=== PATIENT | male | born 1995 | race Caucasian/White ===

== ENCOUNTER 2020-03-25 21:22 | Observation (INO) ==
[2020-03-25 23:12] LABS: Appearance Urine Clear (Clear); Bacteria Urine Automated Negative (Negative); Bilirubin Urine Negative (Negative); Blood Urine Negative (Negative); Color Urine Yellow; Epithelial Cell Urine Auto 20-30 /lpf (0-5); Glucose Urine UA Trace (Negative); Ketones Urine Negative (Negative); Leukocyte Esterase Urine 1+ (Negative); Nitrite Urine Negative (Negative); Protein Urine Negative (Negative); RBC Urine Automated 0-4 /hpf (0-4); Specific Gravity Urine 1.012 (1.000-1.030); Urobilinogen Urine Negative (Negative); WBC Urine Automated >30 /hpf (0-5); pH Urine 6.5 (4.5-7.5)
[2020-03-25 23:14] LABS: Amphetamines+Metham, Urine Neg (Neg); Barbiturates, Urine Neg (Neg); Benzodiazepine, Urine Neg (Neg); Cocaine, Urine Neg (Neg); MDMA (Ecstacy), Urine Neg (Neg); Methadone, Urine Neg (Neg); Opiate, Urine Neg (Neg); Phencyclidine, Urine Neg (Neg)
[2020-03-25 23:47] LABS: Basophils # (auto) 0.03 K/uL (0-0.2); Basophils % (auto) 0.4 %; Eosinophils # (auto) 0.05 K/uL (0-0.5); Eosinophils % (auto) 0.7 %; Hematocrit (blood only) 42.7 % (42-52); Hemoglobin 15.3 g/dL (14.0-18.0); Immature Granulocytes # (auto) 0.02 K/uL (0.00-0.02); Immature Granulocytes % (auto) 0.3 %; Lymphocytes # (auto) 2.89 K/uL (1.2-3.4); Lymphocytes % (auto) 41.9 %; Mean Corpuscular Hemoglobin 28.8 pg (25-34); Mean Corpuscular Hgb Conc 35.8 g/dL (32-36); Mean Corpuscular Volume 80.3 fL (80-100); Mean Platelet Volume 8.8 fL (7.4-10.4); Monocytes # (auto) 0.37 K/uL (0.11-0.59); Monocytes % (auto) 5.4 %; Neutrophils # (auto) 3.54 K/uL (1.4-6.5); Neutrophils % (auto) 51.3 %; Platelet Count 276 K/uL (130-400); RDW Coefficient of Variation 12.5 % (11.5-14.5); RDW Standard Deviation 36.1 fL (36.4-46.3); Red Blood Count 5.32 M/uL (4.7-6.1)
[2020-03-26 00:10] LABS: Acetaminophen 142 ug/ml (10-30); Albumin Level 4.2 gm/dl (3.4-5.0); BUN Creatinine Ratio 11.2 (10-20); Calcium 9.2 mg/dl (8.5-10.1); Creatinine Clr Calc Pharmacy 101.6 ml/min; Est GFR (African American) 137.2; Est GFR (Non-African American) 118.4; Potassium 3.8 mmol/L (3.5-5.1); Salicylate < 1.7 mg/dl (2.8-20)
[2020-03-26] MEDS ORDERED: DEXTROSE 5% IV ONE ×2 (00:12)
[2020-03-26] MEDS ORDERED: ACETYLCYSTEINE IV ONE ×2 (00:12)
[2020-03-26 00:21] LABS: Albumin Globulin Ratio 1.3 (0.9-2); Bilirubin,Total 0.4 mg/dl (0.2-1); Globulin 3.3 gm/dl (2.5-4.0); Thyroid Stimulating Hormone 1.4 uIu/ml (0.300-4.500); Total Protein 7.5 gm/dl (6.4-8.2)
--- NOTE | 2020-03-26 00:34 | Emergency Department Note ---
History of Present Illness General Chief Complaint: Overdose (Accidental) Stated Complaint: TOOK TOO MANY ADVIL, EAR PAIN Time Seen by Provider: 03/25/20 21:41 History of Present Illness Provider Complaint: + accidental overdose Time: 19:30 HPI Narrative: 24-year-old college student presented to the emergency department with his father. Patient states at 7:30 PM he took 3 g of Tylenol, 6 500 mg tablet intentionally to "help him study". He states he usually takes Tylenol to help him study. He states he usually takes 4 500 mg tablets at a time. He states he started having ringing in his ears and then googled the symptoms which told him he could be detrimental to his health so he came to the emergency depar tment. Father has a picture of the pill bottle bottle that the patient ingested and it was acetaminophen 500 mg. Patient denies any drug use or alcohol abuse. He denies any suicidal or homicidal ideation. He denies trying to get high. Patient states he does this to help him study. Substance Ingested acetaminophen: Strength of Substance: 500 Number of Pills Ingested: 6 Total Dose: 3000 Time of Ingestion: 19:30 Intent: other ("To help him study") How Overdose Was Discovered: told parent and other (Patient states he googled that if he takes too much Tylenol and can be detrimental to his health.) Context: Accidental Overdose: other (Patient states he googled that if he takes too much Tylenol and can be detrimental to his health.) Home Medications Home Medications Medication Instructions Recorded Confirmed Type No Known Home Medications 03/26/20 03/26/20 History Allergies Allergy/AdvReac Type Severity Reaction Status Date / Time No Known Allergies Allergy Unverified 03/26/20 00:22 Past Med/Surg History Medical History (Updated 03/26/20 @ 00:34 by Chito Cuba) No pertinent family history No pertinent past medical history Surgical History (Updated 03/26/20 @ 00:27 by Chito Cuba) No pertinent past surgical history Social History Smoking Status: Never smoker Feels Safe at Home: Yes Review of Systems A total of 10 systems reviewed and were otherwise negative Physical Exam Vital Signs: Vital Signs - 24 hr 03/25/20 21:33 03/25/20 22:40 03/26/20 00:21 Temperature 36.9 C Temperature Source Oral Pulse Rate 82 Pulse Rate [Finger ] 74 74 Respiratory Rate 18 16 16 Respiratory Effort / Characteristics Non-Labored Sponta neous Respiratory Depth Normal Normal Blood Pressure 136/79 Blood Pressure [Ri ght Arm] 133/81 130/77 Blood Pressure Siobhan n 98 Blood Pressure Siobhan n [Right Arm] 98 94 Blood Pressure Pos ition Sitting Pulse Oximetry 95 97 100 Oxygen Delivery Me thod Room Air Room Air Room Air Sepsis Recent Feve r Within 48 Hours No Sepsis New/Unexpla ined Change in Men jalen Status N/A Sepsis Action Take n by Nursing No Action Required Physical Exam: Physical Exam GENERAL: He is oriented to person, place, and time. He appears well-developed and well-nourished. He does not appear distressed. HENT: Exam performed. - Head: Normocephalic and atraumatic. - Right Ear: External ear normal. No mastoid tenderness. - Left Ear: External ear normal. No mastoid tenderness. - Mouth/Throat: The oropharynx is clear and moist. No trismus in the jaw. No dental abscesses or uvula swelling. No oropharyngeal exudate or tonsillar abscesses. EYES: Conjunctivae and EOM are normal. Pupils are equal, round, and reactive to light. Right eye exhibits no discharge. Left eye exhibits no discharge. No scleral icterus. NECK: Normal range of motion. Neck supple. No JVD present. No spinous process tenderness present. No carotid bruit present. No rigidity. No tracheal deviation and normal range of motion present. No Brudzinski's sign and no Kernig's sign noted. CV: Normal rate, regular rhythm, normal heart sounds and intact distal pulses. There is no peripheral edema. Palpable radial pulses bue. PULM/CHEST: Effort normal and breath sounds normal. No respiratory distress. No stridor. He has no wheezes. He has no rales. - Chest Wall: He exhibits no tenderness. ABD: The abdomen is soft. Bowel sounds are normal. He has no distension. No mass is present. There is no tenderness. There is no rebound, no guarding, no Sage's sign and no tenderness at McBurney's point. Rovsig negative. MUSC/SKEL: Normal range of motion. There is no peripheral edema, tenderness or deformity. LYMPH: No cervical adenopathy. NEURO: He is alert and oriented to person, place, and time. He has normal strength. No cranial nerve deficit or sensory deficit. Coordination and gait normal. GCS eye subscore is 4. GCS verbal subscore is 5. GCS motor subscore is 6. Cerebellar tests wnl. SKIN: Skin is warm and dry. He is not diaphoretic. PSYCH: He has a normal mood and affect. Behavior is normal. Judgment and thought content normal. Course Course 2140: The patient was evaluated in room B6. A complete history and physical exam was performed. Cardiac monitoring: An order was placed for continuous cardiac monitoring. The monitor shows a rate of 70 with sinus rhythm 220: Spoke with [facility]. They asked that the patient took any salicylates and he adamantly denies taking it. Father states that there were no salicylate bottles by him. [facility] also asked that the patient took any Tylenol earlier in the day and the patient states he took 1 g, two 500 mg tablets at approximately 10 AM. Discussed with [facility] and we will wait to check the patient's Tylenol level and lab levels at 2330, 4 hours after ingestion. 0029: Vital signs stable. Labs show Tylenol level of 142. On repeat assessment the patient is in no acute distress. I again asked him if he was sure that the ingestion was at exactly 7:30 PM, he stated it was sometime between 7 and 8 PM he thinks around 7:30 PM. I discussed this with [facility] and given this new information and not exact time of ingestion, both the [facility]ison Control [facility] and I agreed that the patient should be started on neck therapy for Tylenol overdose. Doses were confirmed with [facility]. [facility] Patient continues to deny any suicidal or homicidal ideation. Medical Decision Making Laboratory Data Result diagrams: 03/25/20 23:25 03/25/20 23:25 Lab Results 03/25/20 03/25/20 03/25/20 Range/Units 22:38 22:38 23:25 WBC 6.90 (4.8-10.8) K/uL RBC 5.32 (4.7-6.1) M/uL Hgb 15.3 (14.0-18.0) g/dL Hct 42.7 (42-52) % MCV 80.3 (80-100) fL MCH 28.8 (25-34) pg MCHC 35.8 (32-36) g/dL RDW Std Deviation 36.1 L (36.4-46.3) fL RDW Coeff of [place] 12.5 (11.5-14.5) % Plt Count 276 (130-400) K/uL MPV 8.8 (7.4-10.4) fL Immature Gran % (Auto) 0.3 % Neut % (Auto) 51.3 % Lymph % (Auto) 41.9 % [place] % (Auto) 5.4 % Eos % (Auto) 0.7 % Baso % (Auto) 0.4 % Neut # (Auto) 3.54 (1.4-6.5) K/uL Lymph # (Auto) 2.89 (1.2-3.4) K/uL [place] # (Auto) 0.37 (0.11-0.59) K/uL Eos # (Auto) 0.05 (0-0.5) K/uL Baso # (Auto) 0.03 (0-0.2) K/uL Immature Gran # (Auto) 0.02 (0.00-0.02) K/uL Sodium (136-145) mmol/L Potassium (3.5-5.1) mmol/L Chloride (98-107) mmol/L Carbon Dioxide (21-32) mmol/L Anion Gap (3-11) BUN (7-18) mg/dl Creatinine (0.6-1.4) mg/dl Est Cr Clr Drug Dosing ml/min Est GFR ( Amer) Est GFR (Non-Af Amer) BUN/Creatinine Ratio (10-20) Glucose (70-99) mg/dl Calcium (8.5-10.1) mg/dl Total Bilirubin (0.2-1) mg/dl AST (15-37) U/L ALT (12-78) U/L Alkaline Phosphatase (45-117) U/L Total Protein (6.4-8.2) gm/dl Albumin (3.4-5.0) gm/dl Globulin (2.5-4.0) gm/dl Albumin/Globulin Ratio (0.9-2) TSH (0.300-4.500) uIu/ml Urine Color Yellow Urine Appearance Clear (Clear) Urine pH 6.5 (4.5-7.5) Ur Specific [place] 1.012 (1.000-1.030) Urine Protein Negative (Negative) Urine Glucose (UA) Trace H (Negative) Urine Ketones Negative (Negative) Urine Blood Negative (Negative) Urine Nitrite Negative (Negative) Urine Bilirubin Negative (Negative) Urine Urobilinogen Negative (Negative) Ur Leukocyte Esterase 1+ H (Negative) Urine WBC (Auto) >30 H (0-5) /hpf Urine RBC (Auto) 0-4 (0-4) /hpf U Hyaline Cast (Auto) 1-5 (0-5) /lpf U Epithel Cells (Auto) 20-30 H (0-5) /lpf Urine Bacteria (Auto) Negative (Negative) Salicylates (2.8-20) mg/dl Urine Opiates Screen Neg (Neg) Ur Methadone, Qual Neg (Neg) Acetaminophen (10-30) ug/ml Urine Barbiturates Neg (Neg) Ur Phencyclidine (PCP) Neg (Neg) U Amphetamin/Meth Scrn Neg (Neg) MDMA (Ecstasy) Screen Neg (Neg) U Benzodiazepines Scrn Neg (Neg) Ur Cocaine Metabolite Neg (Neg) U Marijuana (THC) Screen Neg (Neg) Ethyl Alcohol mg/dL (0-3) mg/dl 03/25/20 03/25/20 03/25/20 Range/Units 23:25 23:25 23:25 WBC (4.8-10.8) K/uL RBC (4.7-6.1) M/uL Hgb (14.0-18.0) g/dL Hct (42-52) % MCV (80-100) fL MCH (25-34) pg MCHC (32-36) g/dL RDW Std Deviation (36.4-46.3) fL RDW Coeff of [place] (11.5-14.5) % Plt Count (130-400) K/uL MPV (7.4-10.4) fL Immature Gran % (Auto) % Neut % (Auto) % Lymph % (Auto) % [place] % (Auto) % Eos % (Auto) % Baso % (Auto) % Neut # (Auto) (1.4-6.5) K/uL Lymph # (Auto) (1.2-3.4) K/uL [place] # (Auto) (0.11-0.59) K/uL Eos # (Auto) (0-0.5) K/uL Baso # (Auto) (0-0.2) K/uL Immature Gran # (Auto) (0.00-0.02) K/uL Sodium 141 (136-145) mmol/L Potassium 3.8 (3.5-5.1) mmol/L Chloride 105 (98-107) mmol/L Carbon Dioxide 28 (21-32) mmol/L Anion Gap 8.0 (3-11) BUN 10 (7-18) mg/dl Creatinine 0.91 (0.6-1.4) mg/dl Est Cr Clr Drug Dosing 101.6 ml/min Est GFR ( Amer) 137.2 Est GFR (Non-Af Amer) 118.4 BUN/Creatinine Ratio 11.2 (10-20) Glucose 96 (70-99) mg/dl Calcium 9.2 (8.5-10.1) mg/dl Total Bilirubin 0.4 (0.2-1) mg/dl AST 11 L (15-37) U/L ALT 17 (12-78) U/L Alkaline Phosphatase 50 (45-117) U/L Total Protein 7.5 (6.4-8.2) gm/dl Albumin 4.2 (3.4-5.0) gm/dl Globulin 3.3 (2.5-4.0) gm/dl Albumin/Globulin Ratio 1.3 (0.9-2) TSH 1.400 (0.300-4.500) uIu/ml Urine Color Urine Appearance (Clear) Urine pH (4.5-7.5) Ur Specific [place] (1.000-1.030) Urine Protein (Negative) Urine Glucose (UA) (Negative) Urine Ketones (Negative) Urine Blood (Negative) Urine Nitrite (Negative) Urine Bilirubin (Negative) Urine Urobilinogen (Negative) Ur Leukocyte Esterase (Negative) Urine WBC (Auto) (0-5) /hpf Urine RBC (Auto) (0-4) /hpf U Hyaline Cast (Auto) (0-5) /lpf U Epithel Cells (Auto) (0-5) /lpf Urine Bacteria (Auto) (Negative) Salicylates < 1.7 L (2.8-20) mg/dl Urine Opiates Screen (Neg) Ur Methadone, Qual (Neg) Acetaminophen 142 H (10-30) ug/ml Urine Barbiturates (Neg) Ur Phencyclidine (PCP) (Neg) U Amphetamin/Meth Scrn (Neg) MDMA (Ecstasy) Screen (Neg) U Benzodiazepines Scrn (Neg) Ur Cocaine Metabolite (Neg) U Marijuana (THC) Screen (Neg) Ethyl Alcohol mg/dL < 3.0 (0-3) mg/dl ECG Data Indication: toxicologic Rate (beats per minute): 71 Rhythm: sinus with SA Findings: + T-wave inversion (Lead III only); no ST depression, no ST elevation and no prolonged QT Additional Comments: MI QRS and QTc intervals are within normal limits. [facility] Narrative 2141: The patient was evaluated in room B6. A complete history and physical exam was performed. Cardiac monitoring: An order was placed for continuous cardiac monitoring. The monitor shows a rate of 70 with sinus rhythm 2209: Spoke with [facility]. They asked that the patient took any salicylates and he adamantly denies taking it. Father states that there were no salicylate bottles by him. [facility] also asked that the patient took any Tylenol earlier in the day and the patient states he took 1 g, two 500 mg tablets at approximately 10 AM. Discussed with [facility] Control [facility] and we will wait to check the patient's Tylenol level and lab levels at 2330, 4 hours after ingestion. 0029: Vital signs stable. Labs show Tylenol level of 142. On repeat assessment the patient is in no acute distress. I again asked him if he was sure that the ingestion was at exactly 7:30 PM, he stated it was sometime between 7 and 8 PM he thinks around 7:30 PM. I discussed this with [facility] and given this new information and not exact time of ingestion, both the Poison Control Center and I agreed that the patient should be started on neck therapy for Tylenol overdose. Doses were confirmed with [facility] Control [facility]. [facility]. Patient continues to deny any suicidal or homicidal ideation. Impression & Plan Overdose on Tylenol Critical Care Time Critical Care Time: Yes Total Critical Care Time: 43 I have personally spent greater than 43 minutes of critical care time in the direct management of this patient. This includes bedside care, interpretation of diagnostic studies, and testing, discussion with consultants, patient, and family members, and other required patient management activities. This 43 minutes is in excess of all separately billable procedures. Discharge Plan Visit Data Chief Complaint: Overdose (Accidental) Stated Complaint: TOOK TOO MANY ADVIL, EAR PAIN ED Provider: Chito Cuba Discharge Problem: Overdose on Tylenol Patient Disposition: Admitted As Inpatient Forms Stand Alone Forms: [facility] Prescriptions Prescriptions: No Action No Known Home Medications RF: 0 Referrals Referrals: Awais Aceves PA-C [Primary Care Provider] - Discharge Problem: Overdose on Tylenol Qualifiers: Encounter type: initial encounter Injury intent: undetermined intent Qualified Code(s): T39.1X4A - Poisoning by 4-Aminophenol derivatives, undetermined, initial encounter
[2020-03-26] MEDS ORDERED: ONDANSETRON INJ 2 MG/ML 2 ML VIAL IV PRN (01:46)
--- NOTE | 2020-03-26 02:09 | History & Physical Report ---
Date of Service March 26, 2020 Assessment & Plan (1) Unintentional Tylenol overdose: Acetaminophen level was 142, with normal range 10-30. N-acetylcysteine antidote has begun in the ED, and will be continued per protocol. Repeat laboratories, CBC with differential, chemistry profile and magnesium level in a.m. on 03/27. Repeat labs plus acetaminophen level in 4 hours. Present on Admission?: Yes Admission and Anticipated Discharge Date Admission Date: March 26, 2020 History of Present Illness Chief Complaint: The patient presents to the emergency department with his father, due to concerns regarding routine usage of Tylenol that he has been taking to help him relax while studying Primary Care Provider: Awais Aceves PA-C The patient is a 24-year-old male college student, with no significant past medical history, who has been taking typically 4 Tylenol at the time because it helps him relax and go to sleep for the study. This evening he took 6 tablets, and became concerned about that volume after he started having ringing in his ears. Miguel did a search on the Internet, and found that that much Tylenol could hurt his liver, and he decided to come into the ED for assessment Aller gies Allergy/AdvReac Type Severity Reaction Status Date / Time No Known Allergies Allergy Unverified 03/26/20 00:22 Home Medications Home Medications Medication Instructions Recorded Confirmed Type No Known Home Medications 03/26/20 03/26/20 History Past Med/Surg History Medical History (Updated 03/26/20 @ 02:07 by Andrew Quinn MD) No pertinent family history No pertinent past medical history Surgical History (Updated 03/26/20 @ 00:27 by Chito Cuba) No pertinent past surgical history Social History Smoking Status: Never smoker Hx Alcohol Use: Yes Alcohol type: beer, wine and hard liquor Hx Substance Use: No Preferred Language: Portuguese Communication Ability: Effective Assembler Unit Required: No Beliefs That Will Affect Care: None Current Living Situation: Alone Feels Safe at Home: Yes Safety Concerns: Feels Safe At This Time Review of Systems Review of Systems: The patient denies chest pain, palpitations, shortness of breath, dyspnea on exertion, cough, lower extremity swelling, sore throat, fevers, chills, sweats, weight change, fatigue, nausea, vomiting, diarrhea , constipation, abdominal pain, pelvic pain, blood in urine or stool, dysuria, urinary frequency or urgency, lightheadedness, dizziness, headache, memory loss, loss of consciousness, rash, abnormal bruising or bleeding, imbalance, focal or generalized weakness, numbness or tingling in arms or legs, generalized arthralgias or myalgias, back or neck pain, or night sweats. The review of systems is otherwise negative other than for that already noted above, and at least 10 systems have been reviewed. Physical Exam Physical Exam: The patient is awake, alert and oriented 3, well developed and well nourished, normocephalic and atraumatic, lying in bed and in no acute distress. HEENT--PERRL, EOMI, mucous membranes and oropharynx normal. Neck--supple. No JVD. No bruits. Thyroid normal, trachea midline, no adenopathy. Heart--normal S1 and S2. No murmurs, rubs or gallops. Lungs--clear bilaterally, no respiratory distress, no accessory muscle use. Abdomen--normal bowel sounds and soft. Nontender. Nondistended, no hernias or masses, no organomegaly. Extremities--no cyanosis or clubbing. No edema. Dermatologic--normal skin turgor, normal color, no abnormal lymph nodes, no rash. Neurologic--cranial nerves II through XII grossly intact. Rheumatologic--normal range of motion. Psychiatric--normal affect. Results & Data Results & Data ([facility]) Vital Signs (Past 12 Hours) Vital Signs Temp Pulse Pulse Resp BP BP Pulse Ox 03/26/20 01:48 97.5 F L 63 16 127/82 99 03/26/20 01:26 86 18 122/71 98 03/26/20 00:21 74 16 130/77 100 03/25/20 22:40 74 16 133/81 97 03/25/20 21:33 98.4 F 82 18 136/79 95 Laboratory Results Laboratory Results WBC 6.90 K/uL (4.8-10.8) 03/25/20 23:25 RBC 5.32 M/uL (4.7-6.1) 03/25/20 23:25 Hgb 15.3 g/dL (14.0-18.0) 03/25/20 23:25 Hct 42.7 % (42-52) 03/25/20 23:25 MCV 80.3 fL (80-100) 03/25/20: MCH 28.8 pg (25-34) 03/25/20: MCHC 35.8 g/dL (32-36) 03/25/20: RDW Std Deviation 36.1 fL (36.4-46.3) L 03/25/20 RDW Coeff of Aspen 12.5 % (11.5-14.5) 03/25/20 Plt Count 276 K/uL (130-400) 03/25/20: MPV 8.8 fL (7.4-10.4) 03/25/20: Immature Gran % (Auto) 0.3 % 03/25/20: Neut % (Auto) 51.3 % 03/25/20: Lymph % (Auto) 41.9 % 03/25/20: [place] % (Auto) 5.4 % 03/25/20: Eos % (Auto) 0.7 % 03/25/20: Baso % (Auto) 0.4 % 03/25/20: Neut # (Auto) 3.54 K/uL (1.4-6.5) 03/25/20: Lymph # (Auto) 2.89 K/uL (1.2-3.4) 03/25/20: [place] # (Auto) 0.37 K/uL (0.11-0.59) 03/25/20: Eos # (Auto) 0.05 K/uL (0-0.5) 03/25/20: Baso # (Auto) 0.03 K/uL (0-0.2) 03/25/20: Immature Gran # (Auto) 0.02 K/uL (0.00-0.02) 03/25/20: Sodium 141 mmol/L (136-145) 03/25/20: Potassium 3.8 mmol/L (3.5-5.1) 03/25/20: Chloride 105 mmol/L (98-107) 03/25/20: Carbon Dioxide 28 mmol/L (21-32) 09/20/20 23:25 Anion Gap 8.0 (3-11) 03/25/20 23:25 BUN 10 mg/dl (7-18) 03/25/20 23:25 Creatinine 0.91 mg/dl (0.6-1.4) 03/25/20 23:25 Est Cr Clr Drug Dosing 101.6 ml/min 03/25/20 23:25 Est GFR ( Amer) 137.2 03/25/20 23:25 Est GFR (Non-Af Amer) 118.4 03/25/20 23:25 BUN/Creatinine Ratio 11.2 (10-20) 03/25/20 23:25 Glucose 96 mg/dl (70-99) 03/25/20 23:25 Calcium 9.2 mg/dl (8.5-10.1) 03/25/20 23:25 Total Bilirubin 0.4 mg/dl (0.2-1) 03/25/20 23:25 AST 11 U/L (15-37) L 03/25/20 23:25 ALT 17 U/L (12-78) 03/25/20 23:25 Alkaline Phosphatase 50 U/L (45-117) 03/25/20 23:25 Total Protein 7.5 gm/dl (6.4-8.2) 03/25/20 23:25 Albumin 4.2 gm/dl (3.4-5.0) 03/25/20 23:25 Globulin 3.3 gm/dl (2.5-4.0) 03/25/20 23:25 Albumin/Globulin Ratio 1.3 (0.9-2) 03/25/20 23:25 TSH 1.400 uIu/ml (0.300-4.500) 03/25/20 23:25 Urine Color Yellow 03/25/20 22:38 Urine Appearance Clear (Clear) 03/25/20 22:38 Urine pH 6.5 (4.5-7.5) 03/25/20 22:38 Ur Specific [place] 1.012 (1.000-1.030) 03/25/20 22:38 Urine Protein Negative (Negative) 03/25/20 22:38 Urine Glucose (UA) Trace (Negative) H 03/25/20 22:38 Urine Ketones Negative (Negative) 03/25/20 22:38 Urine Blood Negative (Negative) 03/25/20 22:38 Urine Nitrite Negative (Negative) 03/25/20 22:38 Urine Bilirubin Negative (Negative) 03/25/20 22:38 Urine Urobilinogen Negative (Negative) 03/25/20 22:38 Ur Leukocyte Esterase 1+ (Negative) H 03/25/20 22:38 Urine WBC (Auto) >30 /hpf (0-5) H 03/25/20 22:38 Urine RBC (Auto) 0-4 /hpf (0-4) 03/25/20 22:38 U Hyaline Cast (Auto) 1-5 /lpf (0-5) 03/25/20 22:38 U Epithel Cells (Auto) 20-30 /lpf (0-5) H 03/25/20 22:38 Urine Bacteria (Auto) Negative (Negative) 03/25/20 22:38 Salicylates < 1.7 mg/dl (2.8-20) L 03/25/20 23:25 Urine Opiates Screen Neg (Neg) 03/25/20 22:38 Ur Methadone, Qual Neg (Neg) 03/25/20 22:38 Acetaminophen 142 ug/ml (10-30) H 03/25/20 23:25 Urine Barbiturates Neg (Neg) 03/25/20 22:38 Ur Phencyclidine (PCP) Neg (Neg) 03/25/20 22:38 U Amphetamin/Meth Scrn Neg (Neg) 03/25/20 22:38 MDMA (Ecstasy) Screen Neg (Neg) 03/25/20 22:38 U Benzodiazepines Scrn Neg (Neg) 03/25/20 22:38 Ur Cocaine Metabolite Neg (Neg) 03/25/20 22:38 U Marijuana (THC) Screen Neg (Neg) 03/25/20 22:38 Ethyl Alcohol mg/dL < 3.0 mg/dl (0-3) 03/25/20 23:25 Code Status & VTE Plan Code Status Full code VTE Prophylaxis Plan VTE Prophylaxis will be ordered: Yes PG Care Time/CCT Total # of Minutes Spent Total Time Spent with Patient: Total time spent is greater than 50% in coordination of care (as documented) at patient's floor/unit and/or counseling patient: Coding Level of Care Code 98455 Initial Inpt Care Lvl 2 Diagnoses Unintentional Tylenol overdose T39.1X1A
[2020-03-26] MEDS: ACETYLCYSTEINE IV ONE ×2 (02:15→06:03)
[2020-03-26] MEDS: DEXTROSE 5% IV ONE ×2 (02:15→06:03)
--- NOTE | 2020-03-26 09:29 | Electrocardiogram Report ---
Test Reason : Blood Pressure : / mmHG Vent. Rate : 071 BPM Atrial Rate : 071 BPM P-R Int : 152 ms QRS Dur : 084 ms QT Int : 360 ms P-R-T Axes : 033 028 005 degrees QTc Int : 391 ms Sinus rhythm with marked sinus arrhythmia with occasional Premature ventricular complexes , some with aberrancy Otherwise normal ECG No previous ECGs available Confirmed by Earnest Bonilla ([id number]) on 03/26/2020 9:29:06 AM Referred By: REFERRED SELF Confirmed By:Earnest Bonilla
[2020-03-26 11:21] VITALS: O2SAT 97
[2020-03-26 15:00] VITALS: TEMP 98.4
[2020-03-26 18:32] LABS: INR 1.2 (0.9-1.1); Prothrombin Time 12.2 Seconds (9.0-12.0)
[2020-03-26 18:49] LABS: Albumin Level 4.2 gm/dl (3.4-5.0); Bilirubin Direct 0.1 mg/dl (0-0.2); Bilirubin,Total 0.7 mg/dl (0.2-1); Total Protein 7.6 gm/dl (6.4-8.2)
[2020-03-26 19:10] VITALS: BP 126/74; PULSE 80
--- NOTE | 2020-03-26 21:03 | Discharge Summary ---
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 This evening he took 6 tablets, and became concerned about that volume after he started having ringing in his ears. Miguel did a search on the Internet, and found that that much Tylenol could hurt his liver, and he decided to come into the ED for assessment Admission Exam Per Admitting Provider The patient is awake, alert and oriented 3, well developed and well nourished, normocephalic and atraumatic, lying in bed and in no acute distress. HEENT--PERRL, EOMI, mucous membranes and oropharynx normal. Neck--supple. No JVD. No bruits. Thyroid normal, trachea midline, no adenopathy. Heart--normal S1 and S2. No murmurs, rubs or gallops. Lungs--clear bilaterally, no respiratory distress, no accessory muscle use. Abdomen--normal bowel sounds and soft. Nontender. Nondistended, no hernias or masses, no organomegaly. Extremities--no cyanosis or clubbing. No edema. Dermatologic--normal skin turgor, normal color, no abnormal lymph nodes, no rash. Neurologic--cranial nerves II through XII grossly intact. Rheumatologic--normal range of motion. Psychiatric--normal affect. Principal Diagnosis Tylenol overdose Discharge Exam Constitutional WD/WN, vitals as above Eyes PERRL, conjunctivae normal, anicteric sclerae ENMT external ear and nose normal, oropharynx normal Neck normal visual inspection Respiratory normal respiratory effort, lungs clear to auscultation Cardiovascular RRR, no murmur, no edema Gastrointestinal (Abdomen) normal bowel sounds, soft, nontender, no hepatosplenomegaly Skin no rashes, warm and dry Psychiatric A+Ox3, euthymic affect Discharge Data Allergies Allergy/AdvReac Type Severity Reaction Status Date / Time No Known Allergies Allergy Unverified 03/26/20 00:22 Consultations 03/26/20 00:17 ED Decision to Admit Stat 03/26/20 01:46 Consult Case Management - Discharge Planning Routine Hospital Course (1) Unintentional Tylenol overdose: Unintentional Tylenol overdose: The patient is a 24-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 On Thursday he too 4 Tylenol in the morning and then took 6 in the evening around 8PM. He then did a search on the Internet, and found that that much Tylenol could hurt his liver, and he decided to come into the ED for assessment. - initial Acetaminophen level was 142, with normal range 10-30., - repeat was 20 - N-acetylcysteine antidote has begun in the ED, and completed per protocol. - repeat LFT's wnl., INR elevated slightly at 1.2 - will need follow up LFT's and PT/INR on 03/27 or 03/28 and continued monitoring in one week. Total Time Total Time Spent Total Time Spent (In Minutes): see attending attestation Discharge Plan Discharge Items Patient Disposition: Home - Self-Care Reason For Visit: ACCIDENTAL TYLENOL OD Discharge Diagnosis: Tylenol overdose Activity: Per Instructions section Non-emergency contact: Primary Care Provider Call non-emergency contact if: your symptoms worsen Follow-up/Referrals: Awais Aceves PA-C [Primary Care Provider] - Diet: Regular Addtl Attending Provider Instructions: Tylenol overdose You came to the hospital for taking approximately 10 Tylenol over the day with 4 in the morning and 6 in the evening. You should check in with your primary care doctor in the next couple days. You will need to have follow up labs to further evaluate your liver. You will need to avoid Tylenol and alcohol consumption for the foreseeable future. Stress You brought up that you were having some stress from school, and were taking the Tylenol to help with studying. If you are having continued trouble with studying you should discuss this with your primary doctor. Continue to talk with your family and friends when you are feeling stressed. Follow up You will need to follow up with your primary doctor in the next 2-3 days. You will need to have labs drawn tomorrow 03/27 or 03/28. We will want you to get a (PT / INR) and (Liver enzymes). Return precautions If you develop any abdominal pain, or concerns call or come in to get evaluated. Pending Studies at Discharge: No Stand-Alone Forms: My Moku, Smoking Cessation Medications and DC Order Prescriptions: Continued No Known Home Medications RF: 0 Discharge Orders: Discharge Order (Routine); Ordered 03/26/20 Ordered By: Jose Juan Watson Admission Data Admit Date/Time: 03/26/20 00:50 Attending Provider: Karrie Rivera Admit Provider: Andrew Quinn Primary Care Provider: Awais Aceves Other Providers: Andrew Quinn Other Interventions: Discharge Summary Assessment (RN) Last Done: 03/26/20 19:09 Supervising Physician Co-Signing Physician Notes Resident Physician Supervision Note: I independently interviewed and examined the patient and verified the lovelace history and physical, reviewed labs and image studies, discussed the case with the resident Dr. Watson and agree with the findings and care plan. Resident Activity Tracking Resident Involvement: Resident Care Provided Care Provided: Adult [facility] Medicine CBC Results Results Complete Blood Count Results: RBC 5.32 M/uL (4.7-6.1) 03/25/20 WBC 6.90 K/uL (4.8-10.8) 03/25/20 Hgb 15.3 g/dL (14.0-18.0) 03/25/20 Hct 42.7 % (42-52) 03/25/20 Plt Count 276 K/uL (130-400) 03/25/20 Chemistry (BMP) Results BMP Results: Sodium 141 mmol/L (136-145) 03/25/20 Potassium 3.8 mmol/L (3.5-5.1) 03/25/20 Chloride 105 mmol/L (98-107) 03/25/20 BUN 10 mg/dl (7-18) 03/25/20 Creatinine 0.91 mg/dl (0.6-1.4) 03/25/20 Glucose 96 mg/dl (70-99) 03/25/20
== END 2020-03-26 19:27 | disposition home or self-care (01) | DRG 918 ==
LOC: ED 21:22 → SUATTDRO 03-26 00:50 → 2N 03-26 00:50 → INTOOBSV 03-26 00:50 → 2N 03-26 01:32
DX: T39.1X1A Poisoning by 4-Aminophenol derivatives, accidental (unintentional), initial encounter